=== PATIENT | male | born 1975 | race Two or more races ===

== ENCOUNTER 2021-02-16 13:00 | Outpatient (REF) | payer OTHER, SELFPAY ==
--- NOTE | ~2021-02-16 | US_ITS ---
EXAMINATION: US EXTRACRANIAL CAROTID DUPLEX, BILATERAL CLINICAL INFORMATION: Syncope COMPARISON: None TECHNIQUE: Real-time ultrasound and Doppler techniques (integrating B-mode 2-D vascular images, Doppler spectral analysis and color-flow Doppler imaging) were utilized to interrogate the extracranial carotid arteries, the vertebral arteries and proximal subclavian arteries bilaterally. The degree of stenosis is determined by criteria similar to NASCET. FINDINGS: Right Side: 1. There is no significant atherosclerotic plaque seen in the bifurcation/proximal ICA region. 2. The common carotid artery PSV proximally is 59 cm/s and distally 53 cm/s. 3. The proximal internal carotid artery velocities are 39 cm/s systolic and 18 cm/s diastolic. 4. The proximal external carotid artery PSV is 59 cm/s. 5. The vertebral artery shows antegrade flow. 6. The subclavian artery waveforms are normal. Left Side: 1. There is no significant atherosclerotic plaque seen in the bifurcation/proximal ICA region. 2. The common carotid artery PSV proximally is 66 cm/s and distally 51 cm/s. 3. The proximal internal carotid artery velocities are 52 cm/s systolic and 17 cm/s diastolic. 4. The proximal external carotid artery PSV is 57 cm/s. 5. The vertebral artery shows antegrade flow. 6. The subclavian artery waveforms are normal. US/US carotid duplex BI IMPRESSION: 1. RIGHT: Normal right internal carotid artery without atherosclerotic plaque or hemodynamically significant stenosis. 2. LEFT: Normal left internal carotid artery without atherosclerotic plaque or hemodynamically significant stenosis.
== END 2021-02-16 13:01 | disposition home or self-care (01) ==
LOC: HO.US 13:00
PROVIDERS: PCP Internal Medicine; Visit Provider Internal Medicine
DX: R55 Syncope and collapse (principal)
CPT/HCPCS: 93880

== ENCOUNTER 2021-02-17 06:30 | Outpatient (REF) | payer OTHER, SELFPAY ==
--- NOTE | 2021-02-17 06:42 | EEG_ITS ---
This is a 16-channel EEG with an EKG lead. The patient is reported awake during the tracing. Background EEG rhythm is 12 to 14 hertz, 5 to 30 microvolt posteriorly, and lower amplitude fast anteriorly. Photic stimulation does not produce any significant abnormality. Hyperventilation is unremarkable. No sharp wave spikes or paroxysmal tendencies noted. Cardiac lead does not reveal any significant abnormality. Hyperventilation is not performed. IMPRESSION: Unremarkable EEG. MD GUS Villagomez/JONATAN / [id number]
== END 2021-02-17 06:31 | disposition home or self-care (01) ==
LOC: HO.NEURO 06:30
PROVIDERS: PCP Internal Medicine; Visit Provider Internal Medicine
DX: R55 Syncope and collapse (principal)
CPT/HCPCS: 95819

== ENCOUNTER 2021-02-22 09:30 | Outpatient (REF) | payer OTHER, SELFPAY ==
--- NOTE | ~2021-02-22 | CT_ITS ---
EXAMINATION: CT HEAD WITHOUT CONTRAST CLINICAL INFORMATION: Syncope and collapse. COMPARISON: None TECHNIQUE: Contiguous axial imaging was performed from the skull base to vertex without intravenous administration of contrast. This CT examination was performed using dose optimization techniques as appropriate, variously including the following: *Automated exposure control *Adjustment of mA and/or kV according to patient size (this includes techniques or standardized protocols for targeted exams where dose is matched to indication/reason for exam; i.e. extremities or head) *Use of iterative reconstruction technique DLP: 791 mGy-cm FINDINGS: There is no evidence of acute intracranial hemorrhage or territorial infarction. No abnormal mass effect or midline shift is seen. Melgoza to white matter differentiation is well preserved. No extra-axial fluid collections are identified. The ventricles are normal in size. There is no abnormal attenuation within the brain parenchyma. The osseous structures and soft tissues are normal. The mastoid air cells and visualized portions of the paranasal sinuses are well aerated. CT/CT head/brain wo con IMPRESSION: No acute intracranial process seen
== END 2021-02-22 09:31 | disposition home or self-care (01) ==
LOC: HO.CT 09:30
PROVIDERS: Visit Provider Internal Medicine
DX: R55 Syncope and collapse (principal)
CPT/HCPCS: 70450

== ENCOUNTER → 2021-03-28 13:01 | Outpatient (REF) | payer OTHER, SELFPAY ==
--- NOTE | 2021-03-28 13:06 | ECG_ITS ---
Hook-up date: 2021-03-28 13:25:00 Duration: 25:57:00 Test Indications: SYNCOPE AND COLLAPSE Medications: 895221 QRS complexes 3 Ventricular ectopics which represent <1 % of total QRS comp. * Supraventricular ectopics which represent % of total QRS comp. * Paced QRS complexs which represent % of total QRS comp. VENTRICULAR ECTOPY 1 Isolated 0 Bigeminal Cycles 1 Couplets 0 Runs 0 Beats in Runs * Beats LONGEST at * BPM at :: -- * Beats FASTEST at * BPM at :: -- SUPRAVENTRICULAR ECTOPY * Isolated * Couplets * Runs * Beats in Runs * Beats LONGEST at * BPM at :: -- * Beats FASTEST at * BPM at :: -- HEART RATES 37 MIN at 03:51:25 2021-03-29 86 AVG 163 MAX at 01:13:57 2021-03-29 LONGEST RR 1.8960 secs at 04:45:10 2021-03-29 S-T LEVELS Channel 1 - 128 mm at 13:25:00 2021-03-28 - 128 mm at 13:25:00 2021-03-28 Channel 2 - 128 mm at 13:25:00 2021-03-28 - 128 mm at 13:25:00 2021-03-28 Channel 3 - 128 mm at 03:24:41 -- - 128 mm at 03:24:41 Underlying rhythm is sinus; Average ventricular rate 86/min; range 37-163/min; About 22% of the time, ventricular rate >100/min; Episodes of 2nd degree; wenckeback type heart block, mostly during sleep hours but also during awake hours; Max pause duration 1.89sec; Patient did not report any symptoms in the diary Referred By: Kelly Cyr Overread By: JACOBY GOMEZ
== END ==
LOC: HO.CARD 13:01
PROVIDERS: Visit Provider Internal Medicine
DX: R55 Syncope and collapse (principal)
CPT/HCPCS: 93225; 93226

== ENCOUNTER 2023-05-27 08:38 | Outpatient (REF) | payer OTHER, SELFPAY ==
[2023-05-27 10:07] LABS: Alanine Aminotransferase 18 U/L (0-40); Albumin Level 3.7 g/dL (3.5-5.0); Alkaline Phosphatase 71 U/L (39-117); Anion Gap 12 (12-20); Aspartate Amino Transferase 22 U/L (5-37); Bilirubin Total 0.6 mg/dL (0.0-1.0); Blood Urea Nitrogen 10 mg/dL (9-16); Calcium 9.3 mg/dL (8.4-10.2); Carbon Dioxide 26 mmol/L (22-29); Chloride 105 mmol/L (96-108); Cholesterol 235 mg/dL; Estimated Glomerular Filt Rate > 60; Glucose Fasting 124 mg/dL (60-99); HDL Cholesterol 41 mg/dL; LDL Cholesterol Calculated 154 mg/dl; Potassium 4.1 mmol/L (3.3-5.1); Sodium 139 mmol/L (135-145); Total Protein 7.2 g/dL (6.5-8.0); Triglycerides 202 mg/dL
== END 2023-05-27 08:39 | disposition home or self-care (01) ==
LOC: HO.LAB 08:38
PROVIDERS: PCP Internal Medicine; Visit Provider Internal Medicine
DX: E66.09 Other obesity due to excess calories (principal); Z68.36 Body mass index [BMI] 36.0-36.9, adult
CPT/HCPCS: 36415; 80053; 80061

== ENCOUNTER 2023-05-27 09:09 | Emergency (ER) | payer OTHER, SELFPAY ==
[2023-05-27 09:25] VITALS: BP 143/94; PULSE 79; TEMP 36.6; O2SAT 99; BMI 35.1
--- NOTE | 2023-05-27 10:20 | ED.GENADULT ---
HPI - General Adult General Chief complaint: Animal Bite Stated complaint: Tick bite? Heather on abd Time Seen by Provider: 05/27/23 10:19 Source: patient Mode of arrival: ambulatory Limitations: no limitations History of Present Illness HPI narrative: Patient is a 47 year old assigned male at with a history of seizures presenting to the emergency department today with a bruise on his left torso. Patient states that yesterday as he was walking by a mirror with his shirt off he noticed a bruise on the left side of his torso. Patient states that he has a dog and he is concerned that it is a tick bite. Patient states that the area does not hurt or itch. Patient denies any dizziness, lightheadedness, abdominal pain, nausea, vomiting, fever, chills, blurry vision, double vision, loss of vision, chest pain, difficulty breathing, shortness of breath, back pain, night sweats, pain with urination, increased urinary frequency, increased urinary urgency, blood in his urine or stool, syncope or a near syncopal episode, recent trauma or falls, bowel incontinence, bladder incontinence, bowel retention, bladder retention, or any other complaints at this time. Onset (ago): day(s) (2) Location: chest and left Radiation: non-radiation Severity: mild Severity scale (1-10): 1 Relieving factors: none Exacerbating factors: none Associated symptoms: denies other symptoms Treatments prior to arrival: none Related Data Home Medications Medication Instructions Recorded Confirmed levetiracetam 500 mg tablet 500 mg PO BID 05/16/22 05/20/23 Allergies Allergy/AdvReac Type Severity Reaction Status Date / Time No Known Allergies Allergy Verified 05/20/23 07:57 Review of Systems Constitutional: Constitutional: Reports no additional constitutional complaints, Denies chills, Denies fever(s) and Denies night sweats Eyes: Eyes: Reports no additional eye complaints, Denies blurry vision, Denies change in vision, Denies diplopia, Denies eye discharge, Denies loss of vision and Denies eye pain ENT: Denies dizziness Cardiovascular: Cardiovascular: Reports no additional cardiovascular complaints, Denies chest pain, Denies lightheadedness, Denies Loss of Consciousness and Denies dyspnea Respiratory: Respiratory: Reports no additional respiratory complaints and Denies dyspnea Gastrointestinal: Gastrointestinal: Reports no additional gastrointestinal complaints, Denies abdominal pain, Denies melena, Denies hematochezia, Denies change in bowel habits and Denies change in stool character Genitourinary: Genitourinary: Reports no additional male genitourinary complaints, Denies hematuria, Denies oliguria, Denies difficulty urinating, Denies dysuria, Denies urinary frequency, Denies urinary hesitancy, Denies urinary incontinence and Denies urinary urgency Musculoskeletal: Musculoskeletal: Reports no additional musculoskeletal complaints, Denies numbness and Denies tingling Comments: bruise to left torso Neurologic: Denies dizziness, Denies loss of vision, Denies numbness and Denies tingling Psychiatric: Psychiatric: Reports no additional psychiatric complaints Endocrine: Endocrine: Reports no additional endocrine complaints Hematologic/Lymphatic: Hematologic/Lymphatic: Reports no additional hematologic/lymphatic complaints Allergic/Immunologic: Allergic/Immunologic: Reports no additional allergic/immunologic complaints [facility] Past Medical History Attestation statement: The following information was validated with the patient. Source: old records reviewed and nursing notes reviewed Medical History Obese Syncope Surgical History Hx laparoscopic cholecystectomy Family History Family History Mother Diabetes Father No problems noted. Social History Social History Housing: Apartment Alcohol intake: current Alcohol intake frequency: holidays/special occasions only Alcohol type: wine Patient Tobacco Use Status: Never used Tobacco e-Cigarette/Vaping Use: Never Used Second Hand Smoke Exposure: No Advance Directives: No Advance Directives Information Provided: Yes service: No Current occupational status: employed Current occupational exposures/hazards: No Cognitive needs: No Hearing needs: No Vision needs: Yes Physical Exam ED Vital Signs: Vital Signs - 24 hr 05/27/23 09:25 Temperature 97.8 F Pulse Rate 79 Blood Pressure 143/94 H Pulse Oximetry 99 Oxygen Delivery Method Room Air BMI result Body Mass Index 35.1 Const General: cooperative, no acute distress, alert and awake Nutritional Appearance: well nourished Orientation/consciousness: patient oriented x3 Limitations: no limitations HENMT Head: Yes normal to inspection and Yes atraumatic Ears: hearing grossly normal bilaterally and external ears normal General nose exam: Normal external nose present, no nasal discharge noted and no epistaxis Face and sinus: Yes normal facial exam, No abrasion and No laceration Mouth: Normal oral and palatal mucosa present, no drooling and no muffled voice Eyes General: appearance normal, both eyes and all related structures Periorbital: periorbital findings normal Eyelids: Yes eyelids normal Conjunctivae: conjunctivae normal Pupils: Equal, round and reactive pupils present EOM: EOMs intact bilaterally Neck Neck: Yes normal visual inspection, Yes full ROM and Yes no lymphadenopathy Chest Chest/axillae images: 1. small bruised area, no open areas, no warmth, no swelling, no tick Resp Effort & Inspection: normal respiratory effort and able to speak in complete sentences GI Inspection: Yes normal to inspection Neuro General: patient oriented x3 and moves all extremities Cranial nerves: Yes Equal, round and reactive pupils present Cognition (Neuro): normal cognition Motor exam (neuro): 5/5 motor strength present throughout Sensory Exam: Normal double simultaneous stimulation for sensation Coordination: [id number] test normal Extrem General: Yes normal to inspection, Yes full ROM and Yes capillary refill normal Psych Appearance: grossly normal Mental Status: mental status grossly normal Affect: normal affect Attitude: cooperative Thought process: Normal thought process present Thought content: Normal thought content present Insight: Good insight present (Psych) Medical Decision Making Medical Decision Making MDM Narrative: Patient is a 47 year old assigned male at with a history of seizures presenting to the emergency department today with a bruise to his left torso. Patient's physical exam showed a small bruise to the left torso with no open areas, no warmth, no swelling, and no tick. I explained my physical exam findings to the patient. I answered all questions asked by the patient. Given the patient's concern of a tick bite, a tick panel was drawn. I explained to the patient that he would be called if the results were positive however, this bruise on his torso does not appear like a typical tick bite / bullseye rash. I stressed the importance of the patient taking his medication as prescribed. I stressed the importance of the patient following up with his primary care provider. I stressed the importance of the patient returning to the emergency department immediately if his symptoms were to worsen or if he were to develop any dizziness, shortness of breath, difficulty breathing, chest pain, blurry vision, loss of vision, nausea, vomiting, abdominal pain, fever, chills, back pain, or any other complaints. Patient verbalized agreement and understanding with this treatment plan and discharge. Differential Diagnosis Differential Diagnoses: The differential diagnosis associated with the presentation includes Tick bite Hematoma Contusion Chest wall bruise Torso bruise Prescription Management I considered prescription management with: Antibiotic (Arthur await patient's tick panel results before initiating treatment.) Chronic Conditions Patient?s care impacted by: Other (seizure disorder) Discharge Plan Discharge Clinical Impression: Bug bite Patient Disposition: Home, Self-Care Instructions: Tick Bite (ED) Additional Instructions: We will call you if your tick born panel comes back positive. Follow up with your primary care provider. Return to the emergency department immediately if your symptoms worsen or if you develop any dizziness, shortness of breath, difficulty breathing, chest pain, blurry vision, loss of vision, nausea, vomiting, abdominal pain, fever, chills, back pain, or any other complaints. Prescriptions: No Action levetiracetam 500 mg tablet 500 mg PO BID Referrals: Kelly Gentile MD [Primary Care Provider] - Interventions: ED Discharge Assessment Last Done: 05/27/23 10:49 Discharge Date/Time: 05/27/23 10:48 Print Language: Zambian
[2023-05-29 18:34] LABS: A. Phagocytphilium DNA,RT-PCR NOT DETECTED (NOT DETECTED); Babesia Microti DNA, RT-PCR NOT DETECTED (NOT DETECTED); Borrelia Miyamotoi,DNA RT-PCR NOT DETECTED (NOT DETECTED); E.Chaffeensis DNA RT-PCR NOT DETECTED (NOT DETECTED); Lyme(Borrelia ssp)DNA RT-PCR NOT DETECTED (NOT DETECTED)
== END 2023-05-27 10:48 | disposition home or self-care (01) ==
PROVIDERS: Physician Assistant Medical; Emergency Provider Emergency Medicine; PCP Internal Medicine
DX: S20.362A Insect bite (nonvenomous) of left front wall of thorax, initial encounter (principal); W57.XXXA Bitten or stung by nonvenomous insect and other nonvenomous arthropods, initial encounter; Y93.9 Activity, unspecified; Y92.9 Unspecified place or not applicable; Y99.9 Unspecified external cause status
CPT/HCPCS: 36415; 87798; 87801; 99283

== ENCOUNTER 2023-06-16 11:56 | Emergency (ER) | payer OTHER, SELFPAY ==
--- NOTE | ~2023-06-16 | XR_ITS ---
Examination: XR elbow RT min 3V, XR hand wrist RT Indication: Fall and pain Comparison: No pertinent prior studies are currently available for comparison. Technique: 3 views of the right elbow and 4 views of the right wrist Findings: Right elbow: No significant elbow joint effusion. Bones are normal anatomic alignment with no acute fracture or dislocation seen. Right wrist: Bones are normal anatomic alignment with no acute fracture or dislocation seen. No obvious cortical disruption or trabecular irregularity to suggest underlying fracture. Incidental tiny radiopaque foreign body seen along the lateral aspect of the second digit near the second MCP joint of unlikely acute significance XR/XR hand wrist RT Impression: No acute fracture or dislocation seen. Incidental tiny radiopaque foreign body along the lateral aspect of the second digit.
--- NOTE | ~2023-06-16 | XR_ITS ---
Examination: XR elbow RT min 3V, XR hand wrist RT Indication: Fall and pain Comparison: No pertinent prior studies are currently available for comparison. Technique: 3 views of the right elbow and 4 views of the right wrist Findings: Right elbow: No significant elbow joint effusion. Bones are normal anatomic alignment with no acute fracture or dislocation seen. Right wrist: Bones are normal anatomic alignment with no acute fracture or dislocation seen. No obvious cortical disruption or trabecular irregularity to suggest underlying fracture. Incidental tiny radiopaque foreign body seen along the lateral aspect of the second digit near the second MCP joint of unlikely acute significance XR/XR elbow RT min 3V Impression: No acute fracture or dislocation seen. Incidental tiny radiopaque foreign body along the lateral aspect of the second digit.
[2023-06-16 12:13] VITALS: BP 140/100; PULSE 83; RESP 16; TEMP 36; O2SAT 98; BMI 34.7
--- NOTE | 2023-06-16 12:16 | ED_ITS ---
HPI - Extremity Problem General Chief complaint: Extremity Injury, Upper Stated complaint: R wrist injury? Time Seen by Provider: 06/16/23 12:26 Source: patient Mode of arrival: ambulatory Limitations: no limitations History of Present Illness HPI Narrative: patient is a 47 year old male who presents emergency department for evaluation of traumatic right hand/ wrist pain most notably at to the 1st MCP and it is radiating upwards towards his elbow. He reports a mechanical fall on an outstretched hand 3 weeks ago after tripping in a hole in the ground. He denies any head strike or loss of consciousness from this fall. He denies any numbness or tingling to the extremity, although he does report subjective weakness, stating that he has dropped items while at work reportedly due to the amount of pain that he is having with lifting. denies any redness, warmth, rashes, fevers, chills Related Data Home Medications Medication Instructions Recorded Confirmed levetiracetam 500 mg tablet 500 mg PO BID 05/16/22 05/20/23 Previous Rx's Medication Instructions Recorded cephalexin 500 mg tablet 500 mg PO BID 7 days #14 tabs 05/28/23 Allergies Allergy/AdvReac Type Severity Reaction Status Date / Time No Known Allergies Allergy Verified 06/16/23 12:13 Review of Systems Review of Systems: Yes all other systems are reviewed and are negative PMFSH Past Medical History Attestation statement: The following information was validated with the patient. Source: old records reviewed Medical History Obese Syncope Surgical History Hx laparoscopic cholecystectomy Family History Family History Mother Diabetes Father No problems noted. Social History Social History Housing: Apartment Alcohol intake: current Alcohol intake frequency: holidays/special occasions only Alcohol type: wine Patient Tobacco Use Status: Never used Tobacco e-Cigarette/Vaping Use: Never Used Second Hand Smoke Exposure: No Advance Directives: No Advance Directives Information Provided: Yes service: No Current occupational status: employed Current occupational exposures/hazards: No Cognitive needs: No Hearing needs: No Vision needs: Yes Physical Exam Vital Signs: Vital Signs: Last Vital Signs Temp 96.8 F 06/16/23 12:13 Pulse 83 06/16/23 12:13 Resp 16 06/16/23 12:13 BP 140/100 H 06/16/23 12:13 Pulse Ox 98 06/16/23 12:13 O2 Del Method Room Air 06/16/23 12:13 BMI result Body Mass Index 34.7 Appearance: Alert.?Oriented to person, place and time. No acute distress.?Normal affect. Neck: Normal inspection.? Neck supple.?? CVS: Heart sounds normal. Normal heart rate and rhythm.? Pulses normal.?? Respiratory: No respiratory distress.? Lung sounds clear to auscultation bilaterally?? Skin: Skin warm and dry.? Normal skin color.? ? Extremities: No lower extremity edema.? No obvious deformity or point tenderness to the right upper extremity. Computer Trainer strengths are equal bilaterally. 2+ radial pulse bilaterally. Neuro: Moves all extremities spontaneously. Sensation intact bilaterally. No focal neuro deficits. Ambulates with normal steady gait. Course Course Course Narrative: SHANAEE-12:15pm - 47yoM presenting to the ER with complaints of right hand/wrist pain at the 1st MCP/anatomical snuffbox that radiates to his right elbow that has been present for the past 3 weeks after he had a mechanical fall outside. He reports that his dog dug hole i the yard and he fell due to this. He denies head injury loss of consciousness or prolonged down time that he is aware of. He denies any symptoms prior to the fall. He reports that he was not going to come although at work he has been dropping multiple items therefore he decided to come in to be evaluated. Otherwise he denies any extremity swelling, fevers, chills, paresthesias, focal weakness or any other injuries complaints or concerns at this time. Plan: Patient stable to go back to the waiting room to be evaluated in [facility] x- ray of right hand/wrist and elbow ordered at this time. Medical Decision Making Medical Decision Making MDM Narrative: Patient is a 47-year-old male who presents emergency department for evaluation of traumatic left wrist/ elbow pain as Per HPI. Although patient has reported subjective weakness In response to pain, there is no weakness subjectively felt upon examination. Furthermore, there is no tenderness upon palpation over the anatomical snuffbox although this is the region where reports the most pain. In addition there is no deformity noted to the elbow. The extremity is neurovascularly intact distally. XR imaging of the right elbow and wrist is without any evidence of acute fracture or dislocation. There was however mention of foreign body to the right 2nd digit along the lateral aspect, patient is without any acute laceration or obvious abnormality/ foreign body present. Suspect this is not acute. discussed plan of care for discharge home, acetaminophen/ ibuprofen for pain, use of wrist splints, outpatient follow-up primary care provider. Differential Diagnosis Differential Diagnoses: The differential diagnosis associated with the presen tation includes ( fracture, dislocation, tendinitis, neuropathy) Independent Interpretation I performed an independent interpretation of an: Plain X-Ray ( I Have personally interpreted XR imaging and agree with radiologist impression there is no acute fracture dislocation.) Radiology Impression Discussion of test interpretation with radiology: I have reviewed the radiologist's reading. Radiologist Impression: XR/XR elbow RT min 3V Impression: No acute fracture or dislocation seen. Incidental tiny radiopaque foreign body along the lateral aspect of the second digit. Prescription Management I considered prescription management with: Pain Medication ( after physical examination felt that acetaminophen / ibuprofen would be appropriate for pain management) Discharge Plan Discharge Clinical Impression: Right wrist sprain, Tendinitis Patient Disposition: Home, Self-Care Instructions: Wrist Sprain (ED), Tendinitis (ED) Additional Instructions: You can take ibuprofen 200 mg, 3 tablets (600mg) every 6-8 hours as needed for pain, in addition to Tylenol 500 mg, 2 tablets (1,000mg) every 4-6 hours as needed for pain, but not to exceed 3 doses daily (3,000mg).? Wear this splint especially at night, and you may wear it during the day when you are able to rest and not performing physical tasks that would be inhibited with the use of the brace follow-up with your primary care provider for persistent symptoms. Return back to emergency department any new or worsening symptoms or concerns. Prescriptions: No Action cephalexin 500 mg tablet 500 mg PO BID 7 Days Qty: 14 0RF levetiracetam 500 mg tablet 500 mg PO BID Referrals: Kelly Gentile MD [Primary Care Provider] -
== END 2023-06-16 13:52 | disposition home or self-care (01) ==
PROVIDERS: Emergency Provider Student in an Organized Health Care Education/Training Program; PCP Internal Medicine
DX: S63.501A Unspecified sprain of right wrist, initial encounter (principal); M65.231 Calcific tendinitis, right forearm; M79.641 Pain in right hand; W18.30XA Fall on same level, unspecified, initial encounter; Y93.9 Activity, unspecified; Y92.9 Unspecified place or not applicable; Y99.9 Unspecified external cause status
CPT/HCPCS: 29125; 73080; 73110; 73130; 99284

== ENCOUNTER 2023-07-08 07:37 | Outpatient (AMB) | payer OTHER, SELFPAY ==
--- NOTE | 2023-07-08 07:41 | A.OFFVIS_ITS ---
Intake Vital Signs 07/08/23 07:42 Height 5 ft 11 in Weight 243 lb BMI 33.9 BP 130/82 Blood Pressure Location Lt brachial Position Sitting Pulse 86 Intake Visit Reasons: Colonoscopy Consult Intake Note: New consult for 1ST pre colonoscopy screening. Patient denies any GI issues. 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 He has no known family history of GI cancer He has no GI complaints. A normal bowel pattern, good appetite He has seizure disorder well controlled He has no respiratory or cardiac issues Works full-time No nausea, vomiting, hematemesis, hematochezia fever chills PFSH Medical History Obese Syncope Surgical History Hx laparoscopic cholecystectomy Family History Mother Diabetes Father No problems noted. Social History Housing: Apartment Alcohol intake: current Alcohol intake frequency: holidays/special occasions only Alcohol type: wine Patient Tobacco Use Status: Never used Tobacco e-Cigarette/Vaping Use: Never Used Second Hand Smoke Exposure: No service: No Current occupational status: employed Current occupational exposures/hazards: No Cognitive needs: No Hearing needs: No Vision needs: Yes Review of Systems Const All systems reviewed & are unremarkable except as noted in HPI and below ENT Denies dizziness Card Denies chest pain, Denies syncope and Denies dyspnea Resp Denies dyspnea GI Denies abdominal pain, Denies change in bowel habits, Denies heartburn, Denies diarrhea, Denies nausea and Denies vomiting Neuro Denies dizziness, Denies syncope and Denies convulsions Physical Exam Vital Signs: Last Vital Signs Pulse 86 08/07/23 07:42 BP 130/82 07/08/23 07:42 BMI result Body Mass Index 33.9 Const General: cooperative, healthy appearing, comfortable and no acute distress Orientation/consciousness: patient oriented x3 Limitations: no limitations Eyes Sclerae: sclerae normal Resp Effort & Inspection: normal respiratory effort and able to speak in complete sentences Auscultation: clear to auscultation bilaterally, no rales, no rhonchi and no wheezes Cardio Rate: regular rate Rhythm: regular rhythm Heart sounds: S1 normal heart sound present and S2 normal heart sound present Skin General skin exam: no rashes or lesions noted Neuro General: patient oriented x3 Extrem General: Yes full ROM Psych Appearance: grossly normal and well kempt Mental Status: mental status grossly normal Speech and movement: Normal speech and movement present and Clear speech present Attitude: cooperative Thought process: Normal thought process present Thought content: Normal thought content present Insight: Good insight present (Psych) Judgement: Good judgement present (Psych) Assessment & Plan Assessment & Plan (1) Screen for colon cancer: Comment: Pleasant 47-year-old male seizure disorder well controlled Index screening colonoscopy No family history GI cancer No GI complaint Code(s): Z12.11 - Encounter for screening for malignant neoplasm of colon Plan Index screening colonoscopy MiraLax Gatorade prep Orders: Orders Colonoscopy - GI Use Only Today Z12.11 - Encounter for screening for malignant neoplasm of colon Medications: New bisacodyl (Dulcolax (bisacodyl)) Take 4 tablets by mouth at 12:00pm the day before your procedure. 20 mg (4 x 5 mg) PO ONCE 1 day 4 tabs 0RF colonoscopy prep Z12.11 - Encounter for screening for malignant neoplasm of colon polyethylene glycol 3350 (Miralax) Take as directed by mouth the day before your procedure. 238 grams PO ONCE 1 day 238 grams 0RF laxative effect Patient Instructions: Index screening colonoscopy- MG prep- lit given Discussed procedure, indications, rare risks, need for escorted due to anesthesia and prep Opportunity for questions-reinforced, reassured due to anxiety about procedure, he agrees to proceed Encouraged to call questions or concerns Appreciate the opportunity assist in cares tea Mata Coding Level of Care Code New Pt Level 3 (03795) Diagnoses Screen for colon cancer Z12.11 Time Spent (min) 30
[2023-07-08 07:42] VITALS: BP 130/82; PULSE 86; BMI 33.9
== END 2023-07-08 08:20 | disposition home or self-care (01) ==
PROVIDERS: PCP Internal Medicine; Visit Provider Physician Assistant
DX: Z01.818 Encounter for other preprocedural examination (principal); Z12.11 Encounter for screening for malignant neoplasm of colon
CPT/HCPCS: 99203

== ENCOUNTER → 2023-07-08 07:37 | Outpatient (BNVA) | payer OTHER, SELFPAY | PROVIDERS: PCP Internal Medicine; Visit Provider Physician Assistant | DX: Z12.11 Encounter for screening for malignant neoplasm of colon (principal) | CPT/HCPCS: 99202 ==

== ENCOUNTER 2023-10-08 06:14 | Emergency (ER) | payer OTHER, SELFPAY ==
[2023-10-08 06:39] VITALS: BP 130/89; PULSE 96; RESP 16; TEMP 37; O2SAT 98; BMI 34.9
[2023-10-08 06:51] LABS: IDNOW Serial# 6674DD1D; Strep A Nucleic Acid Negative (Negative)
--- NOTE | 2023-10-08 07:20 | ED_ITS ---
HPI - General Adult General Chief complaint: General Medical Stated complaint: Sore throat Time Seen by Provider: 10/08/23 07:19 Source: patient Mode of arrival: ambulatory Limitations: no limitations History of Present Illness HPI narrative: Patient is a 47-year-old male with a PMH of seizures and syncope presenting for 2 days of worsening sore throat. He states the pain was better with salt water gargles but has since worsened. Associated symptoms include right sided ear fullness and anterior cervical tenderness. Denies sick contacts and recent travel. Denies fever, chills, myalgias, headache, rhinorrhea, wheezing, cough, shortness of breath, chest pain, abdominal pain, nausea, vomiting, and diarrhea. Related Data Home Medications Medication Instructions Recorded Confirmed levetiracetam 500 mg tablet 500 mg PO BID 05/16/22 05/20/23 Previous Rx's Medication Instructions Recorded cephalexin 500 mg tablet 500 mg PO BID 7 days #14 tabs 05/28/23 bisacodyl 5 mg tablet,delayed 20 mg (4 x 5 mg) PO ONCE 07/08/23 release (Dulcolax (bisacodyl)) colonoscopy prep 1 day #4 tabs polyethylene glycol 3350 17 238 g PO ONCE laxative effect 1 07/08/23 gram/dose oral powder (Miralax) day #238 grams Magic Mouthwash 5 ml PO TID #240 mL 10/08/23 Diphen/Lido/Antacid 1:1:1 240 mL suspension amoxicillin 875 mg-potassium 1 tab PO BID 7 days #14 tabs 10/08/23 clavulanate 125 mg tablet ketorolac 10 mg tablet 10 mg PO TID PRN pain 5 days #15 10/08/23 tabs prednisone 20 mg tablet 40 mg (2 x 20 mg) PO DAILY 5 days 10/08/23 #10 tabs Allergies Allergy/AdvReac Type Severity Reaction Status Date / Time No Known Allergies Allergy Verified 07/08/23 07:41 Review of Systems Review of Systems: Constitutional : No Weight loss, No Fever, No Chills, No Fatigue, No Malaise ENT/Mouth : + sore throat, + ear fullness, No Rhinorrhea Eyes: No Eye Pain, No Swelling, No Redness Cardiovascular : No Chest Pain, No SOB, No Dyspnea on Exertion, No Orthopnea, No Edema, No Palpitations Respiratory : No Cough, No Sputum, No Wheezing Gastrointestinal : No Nausea, No Vomiting, No Diarrhea, No Constipation, No abdominal Pain, No Hematochezia, No Melena Genitourinary : No Dysuria, No Urinary Frequency, No Hematuria, Musculoskeletal : No joint pain, No Myalgias, No Joint Swelling Skin : No Skin Lesions, No rash Neuro : No Weakness, No Numbness, No Dizziness, No Headache All other systems reviewed and are negative Yes all other systems are reviewed and are negative [facility] Past Medical History Medical History Obese Syncope Surgical History Hx laparoscopic cholecystectomy Family History Family History Mother Diabetes Father No problems noted. Social History Social History Housing: Apartment Alcohol intake: current Alcohol intake frequency: holidays/special occasions only Alcohol type: wine Patient Tobacco Use Status: Never used Tobacco e-Cigarette/Vaping Use: Never Used Second Hand Smoke Exposure: No Advance Directives: No Advance Directives Information Provided: No service: No Current occupational status: employed Current occupational exposures/hazards: No Cognitive needs: No Hearing needs: No Vision needs: Yes Physical Exam ED Vital Signs: Vital Signs - 24 hr 10/08/23 06:39 10/08/23 07:55 Temperature 98.6 F Pulse Rate 96 80 Respiratory Rate 16 14 Blood Pressure 130/89 131/91 H Pulse Oximetry 98 98 Oxygen Delivery Method Room Air Room Air BMI result Body Mass Index 34.9 vss Appearance: Alert.? Oriented X3.? No acute distress.? Head: Normocephalic, atraumatic, no step-offs or deformities Eyes: Pupils equal, round and reactive to light.? ENT: Bilateral tonsilar edema with exudate and ulcerated flat lesions. Uvula midline. Speaking in full sentences. Controlling secretions well. Pharynx erythematous.??External ears normal, TMs normal bilaterally and EAC's normal. No pain with manipulation of external ears bilaterally. No mastoid tenderness. Neck: Normal inspection.? Neck supple.? CVS: Normal heart rate and rhythm.? Pulses normal.? Respiratory: No respiratory distress.? Breath sounds normal.? Abdomen: Soft and nontender.? Skin: Skin warm and dry.? Normal skin color.? Normal skin turgor.? Extremities: No lower extremity edema.? No calf ttp. 5/5 strength to bilateral upper and lower extremities Neuro: Oriented X 3.? No motor deficit.? No sensory deficit. Course Reevaluation(s) Reevaluation #1: COVID, mono screen negative, strep also negative. However based off patient's history, physical exam high suspicion for strep pharyngitis will discharge with Augmentin, prednisone, magic mouthwash. Patient reports feeling better after medications. Educated patient on diagnosis and treatment plan, answered all question, patient verbalizes understanding. At this time patient will be discharged home, advised to return with new or worsening symptoms. Educated on worrisome signs and symptoms and when to return. At this time I feel comfortable discharge home. At time of discharge patient tolerating p.o. Time: 08:59 Medications Administered Discontinued Medications Generic Name Dose Route Start Last Admin Trade Name Yamilet PRN Reason Stop Dose Admin Dexamethasone Sodium Phosphate 10 mg 10/08/23 07:27 10/08/23 08:06 Dexamethasone Sod Phosphate 10 Mg/Ml Vial IVPUSH 10/08/23 07:28 10 mg ONCE ONE Administration Ketorolac Tromethamine 30 mg 10/08/23 07:32 10/08/23 08:06 Ketorolac Tromethamine 30 Mg/Ml Vial IM 10/08/23 07:33 30 mg ONCE ONE Administration Lidocaine HCl 15 ml 10/08/23 07:33 10/08/23 08:06 Lidocaine Hcl Viscous 2 % 15 Ml Solution MUCOUS MEM 10/08/23 07:34 15 ml ONCE ONE Administration Medical Decision Making Medical Decision Making [facility] Narrative: 07 47 year old male presents w/ sore throat X 2 days worsening PE w/ Bilateral tonsilar edema with exudate and ulcerated flat lesions. Uvula midline. Speaking in full sentences. Controlling secretions well. Pharynx erythematous.??External ears normal, TMs normal bilaterally and EAC's normal. No pain with manipulation of external ears bilaterally. No mastoid tenderness. Concerns for pharyngitis versus mononucleosis versus other viral illness. This is less likely peritonsillar abscess, retropharyngeal abscess, epiglottitis, threat to airway. No signs of otitis media or externa on exam, no signs of mastoiditis. Plan- mono test, viral test, strep test Differential Diagnosis Differential Diagnoses: The differential diagnosis associated with the presentation includes Concerns for pharyngitis versus mononucleosis versus other viral illness. This is less likely peritonsillar abscess, retropharyngeal abscess, epiglottitis, threat to airway. No signs of otitis media or externa on exam, no signs of mastoiditis. Admission/Observation Consideration of admission/observation: Escalation of care including admission/observation considered Lab Data MDM Lab Attestation statement: I reviewed the patient's lab results. Labs: Lab Results 10/08/23 10/08/23 Range/Units 06:36 07:53 COVID-19 (SAQIB) Negative (Negative) COVID-19 Clin Com See Note Monoscreen Negative (Negative) S. pyogenes GrpA KALANI Negative (Negative) Tests considered The following testing was considered but not selected: I do not suspect peritonsillar retropharyngeal abscess, no indication for imaging at this time Prescription Management I considered prescription management with: Pain Medication and Antibiotic Critical Care Time Critical Care Time Critical Care Time: No Discharge Plan Discharge Clinical Impression: Pharyngitis Patient Disposition: Home, Self-Care Instructions: Pharyngitis (ED) Additional Instructions: Take your medications as prescribed. If you were prescribed antibiotics today, it is important that you take your medication to their entirety, do not skip any doses, do not finish them early. Follow-up with your primary care provider this week. Return to the emergency department with new or worsening symptoms. Such as fevers, chills, chest pain, shortness of breath, nausea, vomiting, dizziness, headache, vision changes, lethargy In case of emergency call 911 Please continue salt water garggles. Toradol has been sent to your pharmacy, you tolerated this well in the department. Please take this as prescribed do not take this with ibuprofen, or other NSAIDs, do not mix this with alcohol. Side effects of this medication including increased risk for bleeding and possible kidney injury. Prescriptions: New prednisone 20 mg tablet 40 mg PO DAILY 5 Days Qty: 10 0RF amoxicillin-pot clavulanate 875-125 mg tablet 1 tab PO BID 7 Days Qty: 14 0RF Magic Mouthwash Diphen/Lido/Antacid 1:1:1 240 mL suspension 5 ml PO TID Qty: 240 0RF Rx Instructions: Lidocaine Viscous 2 % 80mL; diphenhydramine 12.5 mg/5 mL 80mL; aluminum-mag hydrox-simeth [id number]/5mL 80mL Swish and spit, do not swallow ketorolac 10 mg tablet 10 mg PO TID PRN (Reason: pain) 5 Days Qty: 15 0RF No Action cephalexin 500 mg tablet 500 mg PO BID 7 Days Qty: 14 0RF levetiracetam 500 mg tablet 500 mg PO BID bisacodyl [Dulcolax (bisacodyl)] 5 mg tablet,delayed release (DR/EC) 20 mg PO ONCE 1 Days Qty: 4 0RF Rx Instructions: Take 4 tablets by mouth at 12:00pm the day before your procedure. polyethylene glycol 3350 [Miralax] 17 gram/dose powder 238 g PO ONCE 1 Days Qty: 238 0RF Rx Instructions: Take as directed by mouth the day before your procedure. Referrals: Fredis Truong [Physician] - 1 week
[2023-10-08 07:55] VITALS: BP 131/91; PULSE 80; RESP 14; O2SAT 98
[2023-10-08] MEDS: dexAMETHasone sod phosphate 10 MG/ML VIAL IVPUSH (08:06)
[2023-10-08] MEDS: Lidocaine HCl Viscous 2 % 15 ML SOLUTION MUCOUS MEM (08:06)
[2023-10-08] MEDS: Ketorolac Tromethamine 30 MG/ML VIAL IM (08:06)
--- NOTE | 2023-10-08 08:12 | PC.NURSE ---
medicated per the MAR, tolerated well. stated after the medications he felt as if he was having an easier time swallowing.
[2023-10-08 08:16] LABS: COVID-19 Test Negative (Negative); IDNOW Serial# 9DB6401D
[2023-10-08 08:32] LABS: Monotest Negative (Negative)
--- NOTE | 2023-10-08 08:37 | PC.NURSE ---
throat culture obtained from patient
== END 2023-10-08 09:03 | disposition home or self-care (01) ==
PROVIDERS: Physician Assistant; Emergency Provider Student in an Organized Health Care Education/Training Program; PCP Internal Medicine
DX: J02.9 Acute pharyngitis, unspecified (principal); Z11.52 Encounter for screening for COVID-19
CPT/HCPCS: 36415; 86308; 87070; 87147; 87205; 87635; 87651; 96372; 99284; J1100; J1885

== ENCOUNTER 2024-01-17 10:33 | Outpatient (AMB) | payer OTHER, SELFPAY ==
[2024-01-17 11:27] VITALS: BP 120/72; PULSE 100; TEMP 36.4; O2SAT 97; BMI 33.6
--- NOTE | 2024-01-17 11:27 | MHC.OFFWIV ---
Intake Vital Signs 01/17/24 11:27 Height 5 ft 11 in Weight 241 lb BMI 33.6 BP 120/72 Blood Pressure Location Lt brachial Position Sitting Pulse 100 Pulse Source Pulse Oximeter Temp 97.6 F Temp Source Temporal Artery Scan Pulse Oximetry (%) 97 Oxygen Delivery Method Room Air Intake Visit Reasons: EST/ear ache(lobby masked) Intake Note: pt is here today for ear ache 2 days ago Patient Tobacco Use Status: Never used Tobacco Allergies No Known Allergies Allergy (Verified 01/17/24 11:36) Do you need a note to return to daycare/school/sports/work: No HPI HPI Comments History of Present Illness Details This is a 48-year-old male who presented to the walk-in clinic complaining of left sided otalgia, productive cough, and fatigue/malaise. Patient states his symptoms started approximately 4 days ago. 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 He woke up the next day and felt significantly fatigued and unwell. He states he was barely able to get out of bed for the past 3 days. He reported sinus/nasal congestion, rhinorrhea, sore throat, headaches, and low-grade fever/chills. He also reports a productive cough with sometimes clear sometimes green/yellow sputum. He states he developed left-sided otalgia and decreased hearing yesterday. [facility] Medical History (Updated 12/09/23 @ 11:51 by Debi Obrien RN) Seizures Syncope Obese Surgical History Hx laparoscopic cholecystectomy Family History Mother Diabetes Father No problems noted. Social History Housing: Apartment Alcohol intake: current Alcohol intake frequency: holidays/special occasions only Alcohol type: wine Patient Tobacco Use Status: Never used Tobacco e-Cigarette/Vaping Use: Never Used Second Hand Smoke Exposure: No service: No Current occupational status: employed Current occupational exposures/hazards: No Cognitive needs: No Hearing needs: No Vision needs: Yes Review of Systems Const All systems reviewed & are unremarkable except as noted in HPI and below Reports no additional complaints Eyes Reports no additional complaints ENT Reports no additional complaints Card Reports no additional complaints Resp Reports no additional complaints GI Reports no additional complaints Reports no additional complaints Musc Reports no additional complaints Skin/Breast Reports system reviewed and no additional complaints, except as documented Neuro Reports no additional complaints Psych Reports no additional complaints Endo Reports no additional complaints Hardik/Lymph Reports no additional complaints Aller/Immun Reports no additional complaints Physical Exam Vital Signs: Last Vital Signs Temp 97.6 F 01/17/24 11:27 Pulse 100 01/17/24 11:27 BP 120/72 01/17/24 11:27 Pulse Ox 97 01/17/24 11:27 Oxygen Delivery Method Room Air 01/17/24 11:27 BMI result Body Mass Index 33.6 Const Other: Vital signs reviewed. Constitutional: Non-toxic appearing. No acute distress. Well-developed and well-nourished. HEENT: Normocephalic and atraumatic. Patient's left tympanic membrane and external auditory canal are erythematous and edematous. There is an effusion behind his left tympanic membrane in his left tympanic membrane is bulging. Skin: Warm and dry. No rashes or lesions noted. Neck: Full and painless range of motion. No cervical lymphadenopathy. Cardio: Regular rate and rhythm. No murmurs, gallops, or rubs. No lower extremity edema. No JVD. Pulmonary: No respiratory distress. No accessory muscle usage. Patient has scattered inspiratory and expiratory wheezing throughout and a frequent raspy cough. Gastrointestinal: Soft, nontender, and nondistended in all 4 quadrants. Musculoskeletal: Normal range of motion in joints throughout the body. No deformity or other signs of injury. Neuro: Alert and oriented x4. Cranial nerves 2-12 grossly intact. No focal deficits appreciated. Psych: Normal mood and affect. Assessment & Plan Assessment & Plan (1) Acute bronchitis: Code(s): J20.9 - Acute bronchitis, unspecified Qualifiers: Bronchitis organism: unspecified organism Qualified Code(s): J20.9 - Acute bronchitis, unspecified (2) Otitis media of left ear: Code(s): H66.92 - Otitis media, unspecified, left ear Qualifiers: Chronicity: acute Plan This is a 48-year-old male who presented to the walk-in clinic complaining of left-sided otalgia/decreased hearing, productive cough, and generalized malaise/fatigue x4 days. On physical examination, his left tympanic membrane is erythematous, edematous, and bulging with an effusion and he has scattered inspiratory and expiratory wheezing with a frequent raspy cough. History and physical most consistent with acute otitis media of the left ear as well as acute bronchitis versus atypical pneumonia. His vital signs are stable, his physical exam is otherwise benign, and he is overall nontoxic appearing. I feel that patient is safe to be discharged home and patient feels safe going home. He was given a prescription for p.o. amoxicillin 1000 mg twice daily x5 days, p.o. azithromycin 500 mg today followed by 250 mg daily x4 days, as well as p.o. prednisone 40 mg daily x5 days for treatment of presumed walking pneumonia, acute otitis media, and acute bronchitis. Patient was advised to proceed directly to the emergency room if he were to develop shortness of breath, worsening sputum production/purulence, or fever/chills. Patient verbalizes understanding and he is in agreement with the plan. Orders: Orders SARS-CoV2/FLU/RSV Today R09.89 - Other specified symptoms and signs involving the circulatory and respiratory systems Medications: New prednisone 20 mg PO DAILY 10 tabs 0RF amoxicillin 1,000 mg (2 x 500 mg) PO TID 15 tabs 0RF azithromycin For 250 mg dose pack: take 500 mg today (day 1), then 250 mg for 4 days (days 2-5) PO 6 tabs 0RF Coding Level of Care Code Est Pt Level 3 (00629) Diagnoses Acute bronchitis, unspecified organism J20.9 Bronchitis organism: unspecified organism Otitis media of left ear H66.92 Chronicity: acute
== END 2024-01-17 12:54 | disposition home or self-care (01) ==
PROVIDERS: PCP Internal Medicine; Visit Provider Physician Assistant Medical
DX: J20.9 Acute bronchitis, unspecified (principal); H66.92 Otitis media, unspecified, left ear
CPT/HCPCS: 99213

== ENCOUNTER 2024-01-17 14:04 | Outpatient (REF) | payer OTHER, SELFPAY | END 2024-01-17 14:05 | disposition home or self-care (01) | LOC: HO.HMGCLNP 14:04 | PROVIDERS: Visit Provider Physician Assistant Medical | DX: Z13.89 Encounter for screening for other disorder (principal) ==

== ENCOUNTER 2024-01-21 16:46 | Outpatient (REF) | payer OTHER, SELFPAY ==
[2024-01-21 18:15] LABS: Influenza A PCR NEGATIVE (Negative); Influenza B PCR NEGATIVE (Negative); Resp Syncy Virus RNA Qual PCR NEGATIVE (Negative); SARS COV2 PCR INHOUSE NEGATIVE (Negative)
== END 2024-01-21 16:47 | disposition home or self-care (01) ==
LOC: HO.LNP 16:46
PROVIDERS: Visit Provider Physician Assistant Medical
DX: R09.89 Other specified symptoms and signs involving the circulatory and respiratory systems (principal); Z11.52 Encounter for screening for COVID-19; Z20.828 Contact with and (suspected) exposure to other viral communicable diseases
CPT/HCPCS: 0241U

== ENCOUNTER 2024-05-25 07:33 | Outpatient (AMB) | payer OTHER, SELFPAY ==
[2024-05-25 07:35] VITALS: BP 120/84; BMI 34.7
--- NOTE | 2024-05-25 07:35 | A.OFFPC_ITS ---
Vital Signs 05/25/24 07:35 Height 5 ft 11 in Weight 249 lb BMI 34.7 BP 120/84 Blood Pressure Location Lt brachial Position Sitting Intake Visit Reasons: PE Intake Note: Patient here for a physical exam Safety Officer Required: No Accompanied by: Self / Same As Patient Allergies No Known Allergies Allergy (Verified 05/25/24 07:45) Medication List - Last Reconciled 05/25/24 by Kelly Cyr MD levetiracetam 500 mg PO BID Tobacco use date assessed: 05/25/24 Dental Screening Dental Screen Date: 05/25/24 Did you have a dental visit in the last 12 months?: Yes Did you have a dental problem in the last 6 months where you did not have access to dental care?: No Was dental information given to patient?: Patient has dentist HPI HPI Comments History of Present Illness Details This is a 48-year-old male with seizures that comes for his physical exam. Seizures are follow by [facility] [place] [facility] [place] [facility] and has not had a seizure in over a year. Has never had a colonoscopy. No acute complaints. [facility] Medical History Seizures Syncope Obese Surgical History Hx laparoscopic cholecystectomy Family History (Updated 05/25/24 @ 07:50 by Kelly Cyr MD) Mother Diabetes Father No problems noted. Sister Liver cancer, Onset Age: 35 Social History Housing: Apartment Alcohol intake: current Alcohol intake frequency: holidays/special occasions only Alcohol type: wine Patient Tobacco Use Status: Never used Tobacco e-Cigarette/Vaping Use: Never Used Second Hand Smoke Exposure: No service: No Current occupational status: employed Current occupational exposures/hazards: No Cognitive needs: No Hearing needs: No Vision needs: Yes Questionnaire PHQ-9 Over the last 2 weeks, how often have you been bothered by any of the following problems? 1. Little interest or pleasure in doing things: not at all 2. Feeling down, depressed, or hopeless: not at all 3. Trouble falling or staying asleep, or sleeping too much: not at all 4. Feeling tired or having little energy: not at all 5. Poor appetite or overeating: not at all 6. Feeling bad about yourself - or that you are a failure or have let yourself or your family down: not at all 7. Trouble concentrating on things, such as reading the newspaper or watching television: not at all 8. Moving or speaking so slowly that other people could have noticed. Or the opposite - being so fidgety or restless that you have been moving around a lot more than usual: not at all 9. Thoughts that you would be better off or of hurting yourself in some way: not at all Total score: 0 Depression Screening Interpretation: Negative Depression Screening Done: Yes 15823 - PHQ-9 Billing: Yes Source: Developed by Drs. Chandler Walker, Maye Peña, Alexi Thomas and colleagues, with an educational shiv from [employer]. Thrive Questionnaire Date Thrive assessed: 05/25/24 I am a: Patient What is your living situation today?: I have a steady place to live Within the past 12 months, did the food you bought not last and you didn't have the money to get more?: Never true Within the past 12 months, did you worry whether your food would run out before you got money to buy more?: Never true Do you have trouble paying for medicines?: No Do you have trouble getting transportation to medical appointments?: No Do you have trouble paying your heating and electricity bill?: No Do you have trouble taking care of your child, family member or friend?: No Do you have trouble with day-to-day activities such as bathing, preparing meals, shopping, managing finances, etc.?: No Are you currently unemployed and looking for a job?: No Are you interested in more education?: No Please select the resources that you would like help with: None Currently or been in a relationship where the following occur: no concerns reported THRIVE Score: 0 AUDIT C Alcohol Use Questionnaire (AUDIT-C) 1. How often do you have a drink containing alcohol?: Monthly or less 2. How many drinks containing alcohol do you have on a typical day when you are drinking?: 1 or 2 3. How often do you have six or more drinks on one occasion?: Never Total Score: 1 Score Reviewed/Action Taken: No ELINA-7 AMB Questionnaire ELINA-7 Date ELINA - 7 assessed: 05/25/24 Feeling nervous, anxious, or on edge: 0 = Not at all Not being able to stop or control worryin = Not at all Worrying too much about different things: 0 = Not at all Trouble relaxin = Not at all Being so restless that it is hard to sit still: 0 = Not at all Becoming easily annoyed or irritable: 0 = Not at all Feeling afraid as if something awful might happen: 0 = Not at all Total ELINA-7 score (0-4 normal; 5-9 mild; 10-14 moderate; 15-21 severe): 0 Source: Developed by Drs. Chandler Walker, Maye Peña, Alexi Thomas and colleagues, with an educational shiv from [employer]. ELINA-7 Assessment Billing ELINA-7 Assessment Tool: ELINA-7 Assessment 63172 Review of Systems Const All systems reviewed & are unremarkable except as noted in HPI and below Card Denies chest pain at rest, Denies chest pain with activity, Denies edema, Denies irregular heart rhythm, Denies claudication, Denies dyspnea, Denies dyspnea on exertion, Denies orthopnea, Denies paroxysmal nocturnal dyspnea and Denies slow heart rate Resp Denies cough, Denies dyspnea and Denies dyspnea on exertion Physical exam (Primary Care) Vital Signs: Last Vital Signs BP 120/84 05/25/24 07:35 BMI result Body Mass Index 34.7 Tobacco/Smoking Status: Tobacco use Status Tobacco use date assessed 05/25/24 05/25/24 07:43 Patient Tobacco Use Status Never used Tobacco 05/25/24 07:43 e-Cigarette/Vaping Use Never Used 05/25/24 07:43 PHQ-9: PHQ-9 Score PHQ-9: Total score 0 05/25/24 07:43 Depression Screening Interpretation: Negative Thrive Assessment: Date of Thrive Assessment Date Thrive assessed 05/25/24 05/25/24 07:43 Currently or been in a relationship where the following occur: no concerns rep orted Const Orientation/consciousness: patient oriented x3 HENMT Head: Yes normal to inspection, Yes normocephalic and Yes atraumatic Ears: external ears normal Eyes General: appearance normal, both eyes and all related structures Eyelids: Yes eyelids normal Conjunctivae: conjunctivae normal Neck Neck: Yes normal visual inspection and Yes supple Resp Effort & Inspection: normal respiratory effort Auscultation: clear to auscultation bilaterally Cardio Jugular venous distension: no JVD Rate: regular rate Rhythm: regular rhythm Heart sounds: S1 normal heart sound present and S2 normal heart sound present GI Inspection: Yes normal to inspection Palpation (GI): Soft to palpation and nontender Auscultation: normal bowel sounds Skin General skin exam: no rashes or lesions noted Neuro General: patient oriented x3 and no focal motor deficits Extrem General: Yes full ROM Psych Appearance: grossly normal Assessment and Plan Assessment & Plan (1) Encounter for physical examination: Code(s): Z00.00 - Encounter for general adult medical examination without abnormal findings Plan: Repeat in a year. (2) Seizures: Code(s): R56.9 - Unspecified convulsions Plan: Continue Keppra. Follow-up with Neurology. Orders: Orders Comprehensive [place]. Panel Fast Today Z00.00 - Encounter for general adult medical examination without abnormal findings Lipid Panel Today E78.5 - Hyperlipidemia, unspecified, Z00.00 - Encounter for general adult medical examination without abnormal findings Referrals Open Access Screening Colonoscopy Referral Z12.11 - Encounter for screening for malignant neoplasm of colon Coding Level of Care Code Est Pt Prev Care 40-64y(06440) Diagnoses Encounter for physical examination Z00.00 Seizures R56.9 Additional Codes ELINA-7 Assessment Billing - ELINA-7 Assessment Tool: ELINA-7 Assessment 32453 ([id number]) Time Spent (min) 31
== END 2024-05-25 07:54 | disposition home or self-care (01) ==
PROVIDERS: PCP Internal Medicine; Visit Provider Internal Medicine
DX: Z00.00 Encounter for general adult medical examination without abnormal findings (principal); R56.9 Unspecified convulsions
CPT/HCPCS: 99396

== ENCOUNTER 2025-06-08 07:32 | Outpatient (REF) | payer OTHER, SELFPAY ==
[2025-06-08 09:16] LABS: Alanine Aminotransferase 31 U/L (0-40); Albumin Level 4.2 g/dL (3.5-5.0); Alkaline Phosphatase 65 U/L (39-117); Anion Gap 12 (12-20); Aspartate Amino Transferase 32 U/L (5-37); Blood Urea Nitrogen 8 mg/dL (9-16); Calcium 9.0 mg/dL (8.4-10.2); Carbon Dioxide 29 mmol/L (22-29); Chloride 106 mmol/L (96-108); Cholesterol 240 mg/dL (<200); Estimated Glomerular Filt Rate > 60; HDL Cholesterol 39 mg/dL (>40); Potassium 4.0 mmol/L (3.3-5.1); Sodium 143 mmol/L (135-145); Total Protein 7.2 g/dL (6.5-8.0); Triglycerides 203 mg/dL (<150)
== END 2025-06-08 07:33 | disposition home or self-care (01) ==
LOC: HO.LAB 07:32
PROVIDERS: PCP Internal Medicine; Visit Provider Internal Medicine
DX: Z00.00 Encounter for general adult medical examination without abnormal findings (principal); R56.9 Unspecified convulsions; Z13.31 Encounter for screening for depression; Z13.39 Encounter for screening examination for other mental health and behavioral disorders
CPT/HCPCS: 36415; 80053; 80061; 96127; 99396

== ENCOUNTER 2025-06-08 07:32 | Outpatient (AMB) | payer OTHER, SELFPAY ==
--- NOTE | 2025-06-08 07:40 | MHC.PC.OV ---
Vital Signs 06/08/25 07:42 Height 5 ft 11 in Weight 247 lb BMI 34.4 BP 124/82 Blood Pressure Location Lt brachial Position Sitting Intake Visit Reasons: PE Intake Note: Patient here for a physical exam Silk Top Hat Body Maker Required: No Accompanied by: Self / Same As Patient Allergies No Known Allergies Allergy (Verified 06/08/25 07:50) Medication List - Last Reconciled 06/08/25 by Kelly Cyr MD levetiracetam 500 mg PO BID Tobacco use date assessed: 06/08/25 Dental Screening Dental Screen Date: 06/08/25 Did you have a dental visit in the last 12 months?: Yes Did you have a dental problem in the last 6 months where you did not have access to dental care?: No Was dental information given to patient?: Patient has dentist HPI HPI Comments History of Present Illness Details The patient is a 49-year-old male presenting for a routine physical examination and preventative care. He reports a history of seizure disorder for which he is currently taking Keppra 500 mg twice daily and follows up with neurology. He has not experienced any seizures recently. The patient underwent a cholecystectomy in the past. His family history includes diabetes in his mother, while his father has no significant health issues. He does not smoke and consumes wine only on special occasions. He denies any symptoms of depression or anxiety. Preventative care measures discussed include updating his tetanus vaccination, which he believes was administered within the last 10 years following an incident where he stepped on a nail. Colorectal cancer screening options were also discussed, with the possibility of using a Cologuard test at home due to a missed colonoscopy appointment. [facility] Medical History Seizures Syncope Obese Surgical History Hx laparoscopic cholecystectomy Family History Mother Diabetes Father No problems noted. Sister Liver cancer, Onset Age: 35 Social History Housing: Apartment Alcohol intake: current Alcohol intake frequency: holidays/special occasions only Alcohol type: wine Patient Tobacco Use Status: Never used Tobacco e-Cigarette/Vaping Use: Never Used Second Hand Smoke Exposure: No service: No Current occupational status: employed Current occupational exposures/hazards: No Cognitive needs: No Hearing needs: No Vision needs: Yes Questionnaire PHQ-9 Over the last 2 weeks, how often have you been bothered by any of the following problems? 1. Little interest or pleasure in doing things: not at all 2. Feeling down, depressed, or hopeless: not at all 3. Trouble falling or staying asleep, or sleeping too much: not at all 4. Feeling tired or having little energy: not at all 5. Poor appetite or overeating: not at all 6. Feeling bad about yourself - or that you are a failure or have let yourself or your family down: not at all 7. Trouble concentrating on things, such as reading the newspaper or watching television: not at all 8. Moving or speaking so slowly that other people could have noticed. Or the opposite - being so fidgety or restless that you have been moving around a lot more than usual: not at all 9. Thoughts that you would be better off or of hurting yourself in some way: not at all Total score: 0 Depression Screening Interpretation: Negative Depression Screening Done: Yes 42112 - PHQ-9 Billing: Yes Source: Developed by Drs. Chandler Walker, Maye Peña, Alexi Thomas and colleagues, with an educational shiv from [employer]. Thrive Questionnaire Date Thrive assessed: 06/08/25 I am a: Patient What is your living situation today?: I have a steady place to live Within the past 12 months, did the food you bought not last and you didn't have the money to get more?: Often true Within the past 12 months, did you worry whether your food would run out before you got money to buy more?: Never true Do you have trouble paying for medicines?: No Do you have trouble getting transportation to medical appointments?: No Do you have trouble paying your heating and electricity bill?: Yes Do you have trouble taking care of your child, family member or friend?: No Do you have trouble with day-to-day activities such as bathing, preparing meals, shopping, managing finances, etc.?: No Are you currently unemployed and looking for a job?: No Are you interested in more education?: Yes Please select the resources that you would like help with: Housing/Assisted Currently or been in a relationship where the following occur: No concerns reported THRIVE Score: 2 AUDIT C Alcohol Use Questionnaire (AUDIT-C) 1. How often do you have a drink containing alcohol?: Monthly or less 2. How many drinks containing alcohol do you have on a typical day when you are drinking?: 1 or 2 3. How often do you have six or more drinks on one occasion?: Never Total Score: 1 Score Reviewed/Action Taken: No ELINA-7 AMB Questionnaire ELINA-7 Date ELINA - 7 assessed: 06/08/25 Feeling nervous, anxious, or on edge: 0 = Not at all Not being able to stop or control worryin = Not at all Worrying too much about different things: 0 = Not at all Trouble relaxin = Not at all Being so restless that it is hard to sit still: 0 = Not at all Becoming easily annoyed or irritable: 0 = Not at all Feeling afraid as if something awful might happen: 0 = Not at all Total ELINA-7 score (0-4 normal; 5-9 mild; 10-14 moderate; 15-21 severe): 0 Source: Developed by Drs. Chandler Walker, Maye Peña, Alexi Thomas and colleagues, with an educational shiv from [employer]. ELINA-7 Assessment Billing ELINA-7 Assessment Tool: ELINA-7 Assessment 65558 Review of Systems Const All systems reviewed & are unremarkable except as noted in HPI and below Card Denies chest pain at rest, Denies chest pain with activity, Denies edema, Denies irregular heart rhythm, Denies claudication, Denies dyspnea, Denies dyspnea on exertion, Denies orthopnea, Denies paroxysmal nocturnal dyspnea and Denies slow heart rate Resp Denies cough, Denies dyspnea and Denies dyspnea on exertion GI Denies abdominal pain, Denies change in bowel habits, Denies excessive flatus, Denies nausea and Denies vomiting Denies urinary hesitancy, Denies urinary incontinence and Denies urinary urgency Neuro Denies lack of coordination Physical exam (Primary Care) Vital Signs: Last Vital Signs BP 124/82 06/08/25 07:42 BMI result Body Mass Index 34.4 Tobacco/Smoking Status: Tobacco use Status Tobacco use date assessed 06/08/25 06/08/25 07:48 Patient Tobacco Use Status Never used Tobacco 06/08/25 07:42 e-Cigarette/Vaping Use Never Used 06/08/25 07:42 PHQ-9: PHQ-9 Score PHQ-9: Total score 0 06/08/25 07:48 Depression Screening Interpretation: Negative Thrive Assessment: Date of Thrive Assessment Date Thrive assessed 06/08/25 06/08/25 07:48 Currently or been in a relationship where the following occur: No concerns reported HENWA Head: Yes normal to inspection, Yes normocephalic and Yes atraumatic Ears: external ears normal Eyes General: appearance normal, both eyes and all related structures Eyelids: Yes eyelids normal Conjunctivae: conjunctivae normal Neck Neck: Yes normal visual inspection and Yes supple Resp Effort & Inspection: normal respiratory effort Auscultation: clear to auscultation bilaterally Cardio Jugular venous distension: no JVD Rate: regular rate Rhythm: regular rhythm Heart sounds: S1 normal heart sound present and S2 normal heart sound present GI Inspection: Yes normal to inspection Palpation (GI): Soft to palpation and nontender Auscultation: normal bowel sounds Skin General skin exam: no rashes or lesions noted Neuro General: no focal motor deficits Extrem General: Yes full ROM Psych Appearance: grossly normal Coding Level of Care Code Est Pt Prev Care 40-64y(99307) Diagnoses Encounter for physical examination Z00.00 Seizures R56.9 Additional Codes PHQ-9 - 25001 - PHQ-9 Billing: Yes ([id number]) ELNIA-7 Assessment Billing - ELINA-7 Assessment Tool: ELINA-7 Assessment 40632 ([id number]) Time Spent (min) 30 Assessment & Plan Assessment & Plan (1) Encounter for physical examination: Code(s): Z00.00 - Encounter for general adult medical examination without abnormal findings Category: Medical (2) Seizures: Code(s): R56.9 - Unspecified convulsions Category: Medical Plan The patient will continue his current regimen of Keppra 500 mg twice daily for seizure management and maintain follow-up with neurology. Preventative care measures include confirming the tetanus vaccination status, as the patient believes it was administered within the last 10 years following a nail puncture incident. Colorectal cancer screening will be pursued with a Cologuard test at home due to a missed colonoscopy appointment, with instructions to complete the test within a month of receipt. Patient was informed and verbally consented to the use of an ambient scribe for clinic note documentation during this visit. Orders: Orders Lipid Panel Today Z00.00 - Encounter for general adult medical examination without abnormal findings Comprehensive [place]. Panel Fast Today Z00.00 - Encounter for general adult medical examination without abnormal findings Referrals Cologuard Test Z12.11 - Encounter for screening for malignant neoplasm of colon, Z12.12 - Encounter for screening for malignant neoplasm of rectum
[2025-06-08 07:42] VITALS: BP 124/82; BMI 34.4
== END 2025-06-08 07:59 | disposition home or self-care (01) ==
LOC: HO.HMCH 07:33
PROVIDERS: PCP Internal Medicine; Visit Provider Internal Medicine
DX: Z00.00 Encounter for general adult medical examination without abnormal findings (principal); R56.9 Unspecified convulsions

== ENCOUNTER 2025-09-02 08:39 | Outpatient (AMB) | payer OTHER, SELFPAY ==
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
== END 2025-09-02 09:18 | disposition home or self-care (01) ==
LOC: HO.HSM 08:40
PROVIDERS: PCP Internal Medicine; Visit Provider Psychiatry & Neurology Neurology
DX: G40.409 Other generalized epilepsy and epileptic syndromes, not intractable, without status epilepticus (principal); Z87.828 Personal history of other (healed) physical injury and trauma
CPT/HCPCS: 99214

== ENCOUNTER → 2025-09-02 08:39 | Outpatient (BNVA) | payer OTHER, SELFPAY | PROVIDERS: PCP Internal Medicine; Visit Provider Psychiatry & Neurology Neurology | DX: G40.409 Other generalized epilepsy and epileptic syndromes, not intractable, without status epilepticus (principal); Z87.828 Personal history of other (healed) physical injury and trauma | CPT/HCPCS: 99212 ==

== ENCOUNTER 2025-09-24 08:30 | Outpatient (REF) | payer OTHER, SELFPAY ==
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
== END 2025-09-24 08:31 | disposition home or self-care (01) ==
LOC: HO.NEURO 08:30
PROVIDERS: PCP Internal Medicine; Visit Provider Psychiatry & Neurology Neurology
DX: G40.909 Epilepsy, unspecified, not intractable, without status epilepticus (principal)
CPT/HCPCS: 95816

== ENCOUNTER → 2025-09-24 09:41 | Outpatient (BNV) | payer OTHER, SELFPAY | PROVIDERS: PCP Internal Medicine; Visit Provider Psychiatry & Neurology Neurology | DX: G40.409 Other generalized epilepsy and epileptic syndromes, not intractable, without status epilepticus (principal); R94.31 Abnormal electrocardiogram [ECG] [EKG] | CPT/HCPCS: 95816 ==

== ENCOUNTER 2025-09-30 08:19 | Outpatient (AMB) | payer OTHER, SELFPAY ==
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
== END 2025-09-30 08:36 | disposition home or self-care (01) ==
LOC: HO.HSM 08:20
PROVIDERS: PCP Internal Medicine; Visit Provider Psychiatry & Neurology Neurology
DX: G40.409 Other generalized epilepsy and epileptic syndromes, not intractable, without status epilepticus (principal); Z87.828 Personal history of other (healed) physical injury and trauma; I49.9 Cardiac arrhythmia, unspecified
CPT/HCPCS: 99214

== ENCOUNTER → 2025-09-30 08:19 | Outpatient (BNVA) | payer OTHER, SELFPAY | PROVIDERS: PCP Internal Medicine; Visit Provider Psychiatry & Neurology Neurology | DX: G40.409 Other generalized epilepsy and epileptic syndromes, not intractable, without status epilepticus (principal); I49.9 Cardiac arrhythmia, unspecified; Z87.828 Personal history of other (healed) physical injury and trauma | CPT/HCPCS: 99212 ==

== ENCOUNTER → 2025-10-04 13:02 | Outpatient (REF) | payer OTHER, SELFPAY | LOC: HO.CARD 13:02 | PROVIDERS: PCP Internal Medicine; Visit Provider Psychiatry & Neurology Neurology | DX: I49.9 Cardiac arrhythmia, unspecified (principal) | CPT/HCPCS: 93225 ==

== ENCOUNTER → 2025-10-04 13:07 | Outpatient (BNV) | payer OTHER, SELFPAY | PROVIDERS: PCP Internal Medicine; Visit Provider Internal Medicine | DX: I49.3 Ventricular premature depolarization (principal); I49.49 Other premature depolarization | CPT/HCPCS: 93244 ==